=== PATIENT | male | born 1955 ===

== ENCOUNTER → 2018-03-07 | Outpatient (CLI) | payer MEDICARE ==
[~2018-03-07] MED LIST: ACE325 PO; ACE500 PO; CIPR-368 PO; IBUP-1618 PO; LOR5 PO; LOR5/325 PO; METR-1 PO; MULT-885 PO; MV-M1TAB27 PO; OXYC-865 PO; PSYL3.4P2 PO
[2018-03-07 10:52] LABS: PLATELET COUNT, AUTOMATED 153 K/uL (150-450)
[2018-03-07 11:08] LABS: LDL CHOLESTEROL 64 mg/dl
== END ==
LOC: LAB 10:11
PROVIDERS: ATTEND Nurse Practitioner Family
DX: Z12.5 Encounter for screening for malignant neoplasm of prostate (principal); R03.0 Elevated blood-pressure reading, without diagnosis of hypertension
CPT/HCPCS: 84443; 85025; G0103; 36415; 82040; 82247; 82310; 82374; 82435; 82465; 82565; 82947; 83718; 84075; 84132; 84153; 84155; 84295; 84450; 84460; 84478; 84520

== ENCOUNTER → 2018-05-29 | Outpatient (CLI) | payer MEDICARE ==
[~2018-05-29] MED LIST changes: +VARI50KI IM
== END ==
LOC: LAB 10:56
PROVIDERS: ATTEND Nurse Practitioner Family
DX: R71.8 Other abnormality of red blood cells (principal)
CPT/HCPCS: 36415; 82607; 82746; 83090; 83921